=== PATIENT | male | born 1940 | race Caucasian/White ===

== ENCOUNTER 2019-01-16 10:32 | Outpatient (CLI) | payer MEDICARE, SELFPAY ==
[2019-01-16 11:43] LABS: ALT 29 U/L (12-78); AST 18 U/L (15-37); Albumin 3.6 g/dL (3.4-5.0); Alkaline Phosphatase 99 U/L (46-116); BUN 24 mg/dL (7-18); Bilirubin, Total 0.8 mg/dL (0.2-1.0); CREATININE 1.03 mg/dL (0.70-1.30); Calcium 9.9 mg/dL (8.5-10.1); Chloride 100 mmol/L (98-107); Glucose 347 mg/dL (70-100); Potassium 4.6 mmol/L (3.5-5.1); Sodium 136 mmol/L (136-145); Total Protein 6.5 g/dL (6.4-8.2)
[2019-01-17 10:02] LABS: PSA, Diagnostic <0.1 ng/ml (0-6.5)
== END 2019-01-16 10:52 ==
PROVIDERS: Visit Provider Internal Medicine
DX: C61 Malignant neoplasm of prostate (principal)
CPT/HCPCS: 36415; 80053; 84153